=== PATIENT | male | born 1955 | race Caucasian/White ===

== ENCOUNTER 2017-08-29 23:01 | Emergency (ER) | payer OTHER ==
[~2017-08-29] VITALS: Ht 177.8 cm; Wt 87.1 kg
== END 2017-08-30 01:32 | disposition home or self-care (01) ==
LOC: ER 23:01
DX: S10.0XXA Contusion of throat, initial encounter (principal); Y04.8XXA Assault by other bodily force, initial encounter; Z87.891 Personal history of nicotine dependence
CPT/HCPCS: 70490; 99284

== ENCOUNTER 2017-09-02 13:01 | Emergency (ER) | payer OTHER ==
[~2017-09-02] VITALS: Ht 177.8 cm; Wt 87.1 kg
== END 2017-09-02 14:13 | disposition home or self-care (01) ==
LOC: ER 13:01
DX: R68.84 Jaw pain (principal); M25.512 Pain in left shoulder; Z87.891 Personal history of nicotine dependence
CPT/HCPCS: 99282

== ENCOUNTER 2018-01-01 12:06 | Day surgery (SDC) | payer OTHER ==
[~2018-01-01] VITALS: Ht 177.8 cm; Wt 87.3 kg
[~2018-01-01 12:06] MED LIST: ACET500; Calcium Magnes1 EACH PO; IBUP800 PO; VITAMIN D-32000 UNI1 PO
[2018-01-01 12:42] LABS: International Normalized Ratio 0.98; Prothrombin Time Results 10.1 Sec (9.7-11.5)
== END 2018-01-01 22:59 | disposition home or self-care (01) ==
LOC: MHTC 12:06
PROVIDERS: Internal Medicine Interventional Cardiology
PROC: 065Q3ZZ Destruction of Left Saphenous Vein, Percutaneous Approach (ICD-10-PCS; principal; 2018-01-01)
PROC: 3E033TZ Introduction of Destructive Agent into Peripheral Vein, Percutaneous Approach (ICD-10-PCS; principal; 2018-01-01)
DX: I87.2 Venous insufficiency (chronic) (peripheral) (principal); I83.812 Varicose veins of left lower extremity with pain; Z87.891 Personal history of nicotine dependence
CPT/HCPCS: 36415; 36465; 36475; 85610; 99152; 99153; C1888; C1894; J1644; J2250; J3010; J7040

== ENCOUNTER → 2019-01-02 | Outpatient (CLI) | payer BC | END | disposition home or self-care (01) | LOC: LAB SHORT 17:32 → LAB 17:32 | DX: K61.1 Rectal abscess (principal) | CPT/HCPCS: 87070; 87075; 87205 ==

== ENCOUNTER → 2019-02-06 | Outpatient (CLI) | payer BC ==
[2019-02-07 14:17] LABS: Stool Occult Bld Immuno 1 Negative (NEGATIVE)
== END | disposition home or self-care (01) ==
LOC: LAB SHORT 11:00 → OLS 11:00 → LAB FUT 12-09 13:45
PROVIDERS: Nurse Practitioner Family
DX: Z12.11 Encounter for screening for malignant neoplasm of colon (principal)
CPT/HCPCS: 82274

== ENCOUNTER 2021-02-17 09:48 | Day surgery (SDC) | payer BC ==
[~2021-02-17] VITALS: Ht 177.8 cm; Wt 90.2 kg
[~2021-02-17 09:48] MED LIST changes: +ACIDOPHILUS1 EAC3 PO; +ETOD400 PO; +GABA300 PO
--- NOTE | 2021-02-17 14:55 | NUR ---
02/17/21 8879 Courtney Worthington PT. CAME OUT ON RA WITH SATS 95%. PT. SATS THEN DECREASED TO 90% SO PLACED PT. ON 15L FACE TENT. CHIN LIFT AT TIMES. LUNGS CLEAR ANTERIORLY & LATERALLY. PT NOT AWAKE YET.
--- NOTE | 2021-02-17 15:53 | NUR ---
02/17/21 1553 Eileen Garrett PATIENT UP TO THE BATHROOM TO VOID WITH OUT COMPLICATION
== END 2021-02-17 15:35 | disposition home or self-care (01) ==
LOC: ORSCSDS 09:48
PROVIDERS: Podiatrist Foot & Ankle Surgery
PROC: 0SGH04Z Fusion of Right Tarsal Joint with Internal Fixation Device, Open Approach (ICD-10-PCS; principal; 2021-02-17 11:20)
PROC: 0SGF04Z Fusion of Right Ankle Joint with Internal Fixation Device, Open Approach (ICD-10-PCS; principal; 2021-02-17 11:20)
DX: M19.071 Primary osteoarthritis, right ankle and foot (principal); M21.071 Valgus deformity, not elsewhere classified, right ankle; Z87.891 Personal history of nicotine dependence; Z79.899 Other long term (current) drug therapy
CPT/HCPCS: C1713; J0171; J0330; J0690; J1100; J1885; J2250; J2405; J2704; J2795; J3010; J7120

== ENCOUNTER 2022-06-08 10:55 | Day surgery (SDC) | payer OTHER ==
[~2022-06-08] VITALS: Ht 177.8 cm; Wt 89.2 kg
--- NOTE | 2022-06-08 12:37 | NUR ---
06/08/22 1237 Lopez Marrero ROPIVACAINE 0.5% 30 MLS MIXED W/ EPI 0.15 ML (1MG/ML) PER ORDER TO MAKE ROPIVACAINE 0.5% 1:200,000 FOR INJECTION AT OPSITE BY DR JASSO. 30 MLS INJECTED.
== END 2022-06-08 14:24 | disposition home or self-care (01) ==
LOC: ORSCSDS 10:55
PROVIDERS: Podiatrist Foot & Ankle Surgery
PROC: 0QBL0ZZ Excision of Right Tarsal, Open Approach (ICD-10-PCS; principal; 2022-06-08 12:00)
DX: M21.41 Flat foot [pes planus] (acquired), right foot (principal); M65.871 Other synovitis and tenosynovitis, right ankle and foot; M25.571 Pain in right ankle and joints of right foot; J44.9 Chronic obstructive pulmonary disease, unspecified; Z87.891 Personal history of nicotine dependence; Z79.899 Other long term (current) drug therapy
CPT/HCPCS: C1713; C1769; J0171; J0690; J1100; J1885; J2250; J2405; J2704; J2795; J3010; J7120